=== PATIENT | female | born 1960 | race African-American/Black ===

== ENCOUNTER 2016-07-26 09:48 | Outpatient (CLI) | payer MEDICARE, OTHER ==
[2016-07-26 12:59] LABS: ALT (SGPT) 30 U/L (0-55); AST (SGOT) 26 U/L (5-34); Albumin 4.4 g/dL (3.5-5.0); Alkaline Phosphatase 97 U/L (40-150); Anion Gap 14 mmol/L (10-20); BUN (Urea Nitrogen) 17 mg/dL (9.8-20.1); Bilirubin, Total 0.3 mg/dL (0.2-1.2); Calc. Creatinine Clearance 0 mL/min (70-130); Calcium 9.3 mg/dL (7.8-10.44); Carbon Dioxide 27 mmol/L (22-29); Cardiac Risk 3.8 (Less than 4.5); Chloride 108 mmol/L (98-107); Cholesterol 207 mg/dL (< 200 Desired); Estimated GFR-MDRD 74; Globulin 2.9 g/dL (2.4-3.5); Glucose 90 mg/dL (70-105); HDL Cholesterol 54 mg/dL (>60 Neg Risk); LDL Cholesterol, Calculated 128 mg/dL; Potassium 4.2 mmol/L (3.5-5.1); Protein, Total 7.3 g/dL (6.0-8.3); Sodium 145 mmol/L (136-145); Triglycerides 124 mg/dL (Less than 150)
[2016-07-26 13:23] LABS: Bilirubin Negative (Negative); Blood, Urine Negative (Negative); Clarity Cloudy (Clear); Glucose, Urine (Dipstick) Negative (Negative); Leukocyte Trace (Negative); Nitrite Positive (Negative); Protein, Urine (Dipstick) Negative (Neg-Trace); Specific Gravity, Urine 1.025 (1.005-1.030); Urobilinogen 0.2 mg/dL (0.2-1.0); pH, Urine 5.5 (5.0-9.0)
[2016-07-26 13:34] LABS: Bacteria/HPF 2+ HPF (None Seen); Crystals/HPF 3+ AMORPH URATES HPF (Negative); RBC/HPF None Seen HPF (0-3); Squamous Epithelial 0-3 HPF (0-3); WBC/HPF 0-3 HPF (0-3)
[2016-07-26 13:46] LABS: #Lymphocytes 2.7 thou/uL (1.20-3.40); #Monocytes 0.5 thou/uL (0.11-0.59); #Neutrophils 3.8 thou/uL (1.40-6.50); %Basophils 0.5 % (0.0-1.0); %Eosinophils 0.6 % (0.0-10.0); %Lymphocytes 38.6 % (21.0-51.0); %Monocytes 7.3 % (0.0-10.0); Hemoglobin 11.9 g/dL (12.0-16.0); Mean Corpuscular HGB CONC 29.9 g/dL (32.0-36.0); Mean Corpuscular Hemoglobin 22.3 pg (27.0-31.0); Mean Corpuscular Volume 74.5 fl (81.0-99.0); Mean Platelet Volume 7.3 fL (7.4-10.4); Platelet Count 237 thou/uL (130-400); RBC Distribution Width 14.7 % (11.5-14.5); Red Blood Cell (RBC) Count 5.33 mill/uL (4.20-5.40); White Blood Cell (WBC) Count 7.1 thou/uL (4.8-10.8)
[2016-07-26 13:58] LABS: Anisocytosis SLIGHT = 6-15 cells (100X) (0-5/hpf); Microcytosis SLIGHT = 6-15 cells (100X) (0-5/hpf); PLT Morphology Comment Appears Adequate
== END 2016-07-26 09:49 | disposition home or self-care (01) ==
LOC: NAVSJIPCSP 09:48
PROVIDERS: ATTEND Internal Medicine
DX: E03.9 Hypothyroidism, unspecified (principal); E78.01 Familial hypercholesterolemia; F51.01 Primary insomnia
CPT/HCPCS: 36415; 80053; 80061; 81003; 81015; 84443; 85025

== ENCOUNTER 2016-09-05 14:06 | Outpatient (CLI) | payer MEDICARE, MEDICAID ==
[2016-09-05 16:14] LABS: ALT (SGPT) 30 U/L (8-55); AST (SGOT) 24 U/L (5-34); Albumin 4.4 g/dL (3.5-5.0); Alkaline Phosphatase 97 U/L (40-150); Anion Gap 15 mmol/L (10-20); BUN (Urea Nitrogen) 17 mg/dL (9.8-20.1); Bilirubin, Total 0.4 mg/dL (0.2-1.2); Calc. Creatinine Clearance 0 mL/min (70-130); Calcium 9.6 mg/dL (7.8-10.44); Carbon Dioxide 26 mmol/L (22-29); Cardiac Risk 4.2 (Less than 4.5); Chloride 106 mmol/L (98-107); Cholesterol 198 mg/dL (< 200 Desired); Estimated GFR-MDRD 77; Glucose 91 mg/dL (70-105); HDL Cholesterol 47 mg/dL (>60 Neg Risk); LDL Cholesterol, Calculated 121 mg/dL; Potassium 4.2 mmol/L (3.5-5.1); Protein, Total 7.4 g/dL (6.0-8.3); Sodium 143 mmol/L (136-145); Triglycerides 152 mg/dL (Less than 150)
[2016-09-05 17:40] LABS: Bilirubin Negative (Negative); Blood, Urine Negative (Negative); Clarity Clear (Clear); Glucose, Urine (Dipstick) Negative (Negative); Leukocyte Negative (Negative); Nitrite Negative (Negative); Protein, Urine (Dipstick) Negative (Neg-Trace); Urobilinogen 0.2 mg/dL (0.2-1.0); pH, Urine 5.5 (5.0-9.0)
[2016-09-05 18:08] LABS: Bacteria/HPF None Seen HPF (None Seen); RBC/HPF 0-3 HPF (0-3); WBC/HPF 0-3 HPF (0-3)
[2016-09-05 22:24] LABS: #Lymphocytes 2.8 thou/uL (1.20-3.40); #Monocytes 0.6 thou/uL (0.11-0.59); #Neutrophils 4.1 thou/uL (1.40-6.50); %Basophils 0.6 % (0.0-1.0); %Eosinophils 0.6 % (0.0-10.0); %Lymphocytes 36.9 % (21.0-51.0); %Monocytes 8.2 % (0.0-10.0); %Neutrophils 53.7 % (42.0-75.0); Hemoglobin 12.1 g/dL (12.0-16.0); Hypochromia MODERATE=16-30 cells (100X) (0-5/hpf); MDiff Complete? YES; Mean Corpuscular HGB CONC 30.4 g/dL (32.0-36.0); Mean Corpuscular Hemoglobin 21.8 pg (27.0-31.0); Mean Corpuscular Volume 71.5 fl (81.0-99.0); Mean Platelet Volume 7.2 fL (7.4-10.4); Microcytosis SLIGHT = 6-15 cells (100X) (0-5/hpf); Platelet Count 230 thou/uL (130-400); Poikilocytosis SLIGHT = 6-15 cells (100X) (0-5/hpf); RBC Distribution Width 14.7 % (11.5-14.5); Red Blood Cell (RBC) Count 5.57 mill/uL (4.20-5.40); Reflex for Review?? NO; White Blood Cell (WBC) Count 7.5 thou/uL (4.8-10.8)
== END 2016-09-05 14:07 | disposition home or self-care (01) ==
LOC: NAVSJIPCSP 14:06
PROVIDERS: ATTEND Internal Medicine
DX: E03.9 Hypothyroidism, unspecified (principal); E78.01 Familial hypercholesterolemia; F51.01 Primary insomnia
CPT/HCPCS: 36415; 80053; 80061; 81001; 84443; 85025

== ENCOUNTER 2021-12-18 08:56 | Emergency (ER) | payer MEDICARE, MEDICAID ==
[2021-12-18] MEDS ORDERED: Lidocaine 1% (PF) 30 ML VIAL ONE (09:30)
[2021-12-18] MEDS ORDERED: Dexamethasone 4 MG TAB ONE (09:30)
[2021-12-18] MEDS ORDERED: cefTRIAXone\\ROCEPHIN 1 GM VIAL ONE (09:30)
[2021-12-18] MEDS ORDERED: Dexamethasone 4 mg/ml Vial ONE (09:31)
[2021-12-18 10:24] LABS: SARS-CoV-2 NAA Rapid Test DETECTED (NotDetected)
== END 2021-12-18 10:15 | disposition home or self-care (01) ==
LOC: NAV ERS 08:56
DX: U07.1 COVID-19 (principal)
CPT/HCPCS: 71045; 96372; J0696; J1100; J2001; J8540